=== PATIENT | female | born 1995 | race Caucasian/White ===

== ENCOUNTER 2025-02-25 13:09 | Emergency (ER) | payer OTHER ==
[~2025-02-25] VITALS: Ht 167.6 cm; Wt 136.1 kg
[2025-02-25] MEDS ORDERED: Ondansetron Hydrochloride 4 MG/2 ML VIAL IV ONE (13:30)
[2025-02-25] MEDS ORDERED: SODIUM CHLORIDE 0.9% 1,000 ML IV ONE (13:30)
[2025-02-25] MEDS ORDERED: MORPHINE Sulfate 2 MG/ML SYR IV ONE (13:30)
[2025-02-25 13:45] LABS: BASO % 0.4 % (0.0-1.0); EOS # 0.1 10*3/uL (0.0-0.4); EOS % 1.2 % (1.0-4.0); HEMATOCRIT 46.4 % (37.0-47.0); MEAN CELL VOLUME 86.7 fl (81.0-99.0); MEAN CORPUSCULAR HGB 28.8 pg (27.0-31.0); MEAN CORPUSCULAR HGB CONC 33.2 g/dl (33.0-37.0); MEAN PLATELET VOLUME 11.8 fl (9.6-12.3); MONO # 0.5 10*3/uL (0.1-1.0); MONO % 4.3 % (3.0-9.0); NEUT # 8.8 10*3/uL (2.3-7.9); NEUT % 79.4 % (47.0-73.0); PLATELET COUNT AUTOMATED 199 10*3/uL (130-400); RED BLOOD COUNT 5.35 10*6/uL (4.10-5.10); RED CELL DISTRI WIDTH 13.5 % (0-14.5); WHITE BLOOD COUNT 11.1 10*3/uL (4.8-10.8)
[2025-02-25 14:04] LABS: BILIRUBIN Negative (Negative); BLOOD 3+ (Negative); CLARITY Turbid (Clear); COLOR Yellow (Yellow); GLUCOSE Negative (Negative); KETONE Trace (Negative); LEUKO ESTERASE Trace (Negative); NITRITE Negative (Negative); UROBILINOGEN 0.2 E.U./dl (0.0-1.0)
[2025-02-25 14:05] LABS: PH >= 9.0 (4.5-8.0)
[2025-02-25 14:10] LABS: ALKALINE PHOSPHATASE 124 U/L (46-116); BUN 8 mg/dl (9-23); CHLORIDE 106 mmol/L (98-107); LIPASE 33 U/L (12-53); POTASSIUM 3.9 mmol/L (3.4-5.1); SGPT/ALT 52 U/L (5-49); TOTAL PROTEIN 7.6 gm/dL (6.0-8.0)
[2025-02-25 14:16] LABS: BACTERIA 4+; EPITHELIAL CELLS 16-20; RBC 41-50 rbc/hpf (0-2)
[2025-02-25] MEDS ORDERED: HYDROCODONE-AC1 EAC1 PO (14:44)
[2025-02-25] MEDS ORDERED: FLOMAX0.4 MG PO (14:44)
[2025-02-25] MEDS ORDERED: MACROBID100 M1 PO (14:44)
[2025-02-25] MEDS ORDERED: Ondansetron4 MG PO (14:44)
[2025-02-25] MEDS ORDERED: Ketorolac Tromethamine 30 MG/ML VIAL IV ONE (14:45)
== END 2025-02-25 15:02 | disposition home or self-care (01) ==
LOC: ED 13:09
PROVIDERS: Physician Assistant Medical
DX: N13.2 Hydronephrosis with renal and ureteral calculous obstruction (principal); J45.909 Unspecified asthma, uncomplicated

== ENCOUNTER 2025-03-14 12:47 | Emergency (ER) | payer OTHER ==
[~2025-03-14] VITALS: Ht 167.6 cm; Wt 136.1 kg
[~2025-03-14 12:47] MED LIST: FLOMAX0.4 MG PO; HYDROCODONE-AC1 EAC1 PO; MACROBID100 M1 PO; Ondansetron4 MG PO
[2025-03-14] MEDS ORDERED: SODIUM CHLORIDE 0.9% 1,000 ML IV ONE (13:05)
[2025-03-14] MEDS ORDERED: ACETAMINOPHEN 325 MG TAB PO ONE (13:05)
[2025-03-14] MEDS ORDERED: IBUPROFEN 600 MG TAB PO ONE (13:10)
[2025-03-14] MEDS ORDERED: Albuterol Sulf/Ipratropium 3 ML VIAL NEB ONE (13:30)
[2025-03-14] MEDS ORDERED: methylPREDNISolone sod succ 125 MG VIAL IV ONE (13:30)
[2025-03-14 13:45] LABS: BASO % 0.4 % (0.0-1.0); EOS # 0.1 10*3/uL (0.0-0.4); EOS % 1.2 % (1.0-4.0); HEMATOCRIT 46.5 % (37.0-47.0); MEAN CELL VOLUME 87.4 fl (81.0-99.0); MEAN CORPUSCULAR HGB 28.9 pg (27.0-31.0); MEAN CORPUSCULAR HGB CONC 33.1 g/dl (33.0-37.0); MEAN PLATELET VOLUME 12.6 fl (9.6-12.3); MONO # 0.4 10*3/uL (0.1-1.0); MONO % 4.5 % (3.0-9.0); NEUT # 8.6 10*3/uL (2.3-7.9); NEUT % 87.4 % (47.0-73.0); PLATELET COUNT AUTOMATED 152 10*3/uL (130-400); RED BLOOD COUNT 5.32 10*6/uL (4.10-5.10); RED CELL DISTRI WIDTH 13.6 % (0-14.5); WHITE BLOOD COUNT 9.9 10*3/uL (4.8-10.8)
[2025-03-14 14:05] LABS: BUN 10 mg/dl (9-23); CHLORIDE 106 mmol/L (98-107); POTASSIUM 3.6 mmol/L (3.4-5.1)
[2025-03-14 14:52] LABS: BILIRUBIN Negative (Negative); BLOOD Negative (Negative); CLARITY Cloudy (Clear); COLOR Yellow (Yellow); GLUCOSE Negative (Negative); KETONE Negative (Negative); LEUKO ESTERASE Negative (Negative); NITRITE Negative (Negative); SPECIFIC GRAVITY 1.015 (1.001-1.030); UROBILINOGEN 0.2 E.U./dl (0.0-1.0)
[2025-03-14 15:01] LABS: BACTERIA 2+
[2025-03-14] MEDS ORDERED: PREDNISONE20 M1 PO (15:37)
[2025-03-14] MEDS ORDERED: AVPAK AZITHROM250 M1 PO (15:37)
[2025-03-14] MEDS ORDERED: ALBUTEROL 8 GM INHALER INH ONE (15:40)
[2025-03-14] MEDS ORDERED: AZITHROMYCIN 250 MG TAB PO ONE (15:40)
== END 2025-03-14 15:41 | disposition home or self-care (01) ==
LOC: ED 12:47
PROVIDERS: Nurse Practitioner Family
DX: B34.9 Viral infection, unspecified (principal); Z20.822 Contact with and (suspected) exposure to COVID-19; J45.901 Unspecified asthma with (acute) exacerbation; Z87.442 Personal history of urinary calculi